=== PATIENT | female | born 1975 | race Caucasian/White ===

== ENCOUNTER 2022-04-24 03:33 | Emergency (ER) | payer BC, SELFPAY ==
[2022-04-24] VITALS (74 sets, daily range): BP systolic 106–149; BP diastolic 60–104; PULSE 63–94; RESP 11–35; TEMP 36.8; O2SAT 96–100
--- NOTE | 2022-04-24 03:48 | W.ED.GENAD ---
Discharge Plan Disposition Patient Disposition: HOME Condition: Improving Discharge Details Clinical Impression: Labile blood glucose, Hypoglycemia Primary Care Provider: Tammy,Local ED Provider: Angie Abdalla Home Meds and New Rx's Prescriptions: Continued Humalog U-100 Insulin 100 unit/mL Cartridge 1 sliding scale dose SUBCUT USEASDIRECTD Rx Instructions: dosed per correction on insulin pump clonazepam [Klonopin] 0.5 mg Tablet 0.5 mg PO TID bupropion HCl 450 mg Tablet Extended Release 24 Hr 450 mg PO DAILY Trintellix 20 mg Tablet 20 mg PO DAILY Discharge Instructions Instructions: Hypoglycemia in a Person with Diabetes (ED), What to Do if Your Blood Sugar is Low (ED) Additional Instructions: Your blood sugar is now within a more acceptable range. The remainder of your lab work is reassuring and shows no evidence of acute concerning or significant findings. Continue to hold on using your insulin pump at this time. Check your sugars regularly. Use your subcutaneous insulin as needed and directed. Call your primary care doctor tomorrow to schedule a follow-up appointment for reevaluation within the next week. Return immediately to the emergency department if you develop any worsening or new concerning symptoms. Discharge Data Discharge Date/Time-TO BE ENTERED AT DEPARTURE: 04/24/22 12:43 Discharge Physician: Angie Abdalla Medical Decision Making <Wilber Mock MD - Last Filed: 04/24/22 08:35> 46-year-old female history of diabetes presents with hyperglycemia, felt nauseous blood sugar at home was as low as the 20s, administered snack and glucagon x2, improved to the 160s per EMS, symptoms returned in route on arrival blood sugar as low as 79. No chest pain shortness of breath no active vomiting. Is visiting from [place]. Asked patient to disconnect her pump. Recent pump location change. Consider pump malfunction versus systemic illness versus kidney dysfunction altering insulin metabolism. Patient Dors she takes no other form of insulin. Currently alert and oriented hemodynamically stable. Bolusing half amp of D50, patient placed on D5 NS drip, will obtain basic labs close reassessment will have patient p.o. and attempt to transition off of dextrose infusion. Disposition pending labs and reassessment. 04: 46 mental status improving, symptoms improving. Still with poor appetite. Will attempt p.o. challenge and transition off of D5 NS. Per collateral information from and patient, patient was not drinking enough fluid yesterday had a couple coffee in the morning and 1 glass of wine in the evening. Consider component of dehydration. Patient and family have access to her Lantus and Humalog for syringes if discharged home will be instructed to use the subcutaneous route without the pump to avoid any possible technological malfunction that could have happened with the pump 8: 34 given repeat dips in her glucose to as low as the 70s patient was given half amp of D50 and was on D5 NS as well as taking p.o., blood sugar teena to over 300, D5 NS was discontinued, patient continues to feel fatigued no nausea or vomiting. Hemodynamically stable. Given subcutaneous insulin; will continue with LR hydration, will order flu RSV COVID close reassessment <Angie Abdalla, - Last Filed: 04/24/22 16:51> 04/24/22 Dr. Mock 46-year-old female history of diabetes presents with hyperglycemia, felt nauseous blood sugar at home was as low as the 20s, administered snack and glucagon x2, improved to the 160s per EMS, symptoms returned in route on arrival blood sugar as low as 79. No chest pain shortness of breath no active vomiting. Is visiting from [place]. Asked patient to disconnect her pump. Recent pump location change. Consider pump malfunction versus systemic illness versus kidney dysfunction altering insulin metabolism. Patient endorsed she takes no other form of insulin. Currently alert and oriented hemodynamically stable. Bolusing half amp of D50, patient placed on D5 NS drip, will obtain basic labs close reassessment will have patient p.o. and attempt to transition off of dextrose infusion. Disposition pending labs and reassessment. 04: 46 mental status improving, symptoms improving. Still with poor appetite. Will attempt p.o. challenge and transition off of D5 NS. Per collateral information from and patient, patient was not drinking enough fluid yesterday had a couple coffee in the morning and 1 glass of wine in the evening. Consider component of dehydration. Patient and family have access to her Lantus and Humalog for syringes if discharged home will be instructed to use the subcutaneous route without the pump to avoid any possible technological malfunction that could have happened with the pump 8: 34 given repeat dips in her glucose to as low as the 70s patient was given half amp of D50 and was on D5 NS as well as taking p.o., blood sugar teena to over 300, D5 NS was discontinued, patient continues to feel fatigued no nausea or vomiting. Hemodynamically stable. Given subcutaneous insulin; will continue with LR hydration, will order flu RSV COVID close reassessment 04/24/22 Dr. Abdalla 0800 --please see Dr. Mock's note for initial presentation, exam and plan. Case endorsed to follow-up on repeat blood sugar after additional IV hydration. 1000 --blood sugar downtrending now 242. Patient feels better. EKG obtained due to report of syncope and within normal limits. Fluvid negative. Patient feels comfortable going home. Advised to follow up with the primary care doctor for re-evaluation. Usual and customary return precautions given prior to discharge. Medical Records Medical records reviewed: Yes I reviewed the patient's medical records. Lab Data Lab results reviewed: Yes I reviewed the patient's lab results. Labs: 04/24/22 04:05 Urine - Reflex from Ua Urine Culture - Pending Laboratory Tests Range/Units 04/24/22 04/24/22 04/24/22 03:55 03:55 03:55 WBC (4.4-10.8) 10^3/uL 12.97 H RBC (3.93-5.22) 10^6/uL 4.25 Hgb (11.2-15.7) g/dL 13.6 Hct (36.0-46.0) % 39.1 MCV (80-95) fL 92 MCH (27.0-33.0) pg 32.0 MCHC (32.0-36.0) % 34.8 RDW (11.7-14.6) % 12.2 Plt Count (130-400) 10^3/uL 218 MPV (8.0-11.0) fL 11.5 H Immature Gran % 0.5 Neutrophils % 77.7 Lymphocytes % 11.2 Monocytes % 8.3 Eosinophils % 1.6 Basophils % 0.7 Nucleated RBC % (0.0-0.3) % 0.0 Absolute Neutrophils (1.2-6.7) 10^3/uL 10.08 H Absolute Lymphocytes (1.2-3.4) 10^3/uL 1.45 Absolute Monocytes (0.1-0.8) 10^3/uL 1.08 H Absolute Eosinophils (0.0-0.7) 10^3/uL 0.21 Absolute Basophils (0.0-0.2) 10^3/uL 0.09 VBG pH (7.31-7.41) 7.38 VBG pCO2 (41-51) mmHg 50 VBG pO2 mmHg 39 VBG HCO3 (23-28) mmol/L 30 H VBG Total CO2 (24-29) mmol/L 27 VBG O2 Saturation % 74 VBG Base Excess (-2-3) mmol/L 4 H Sodium (136-145) mmol/L 140 Potassium (3.5-5.1) mmol/L 3.9 Chloride (98-107) mmol/L 103 Carbon Dioxide (21.0-32.0) mmol/L 30.3 Anion Gap (3-11) mmol/L 6.7 BUN (7-18) mg/dL 23 H Creatinine (0.55-1.02) mg/dL 1.0 Estimated GFR/1.73 m2 (mL/min/1.73m2) >= 60.00 Glucose (74-106) mg/dL 71 L Calcium (8.5-10.1) mg/dL 8.2 L Total Bilirubin (0.2-1.0) mg/dL 0.5 AST (15-37) U/L 21 ALT (14-59) U/L 27 Alkaline Phosphatase (46-116) U/L 68 Troponin I (<or=60) ng/L Total Protein (6.4-8.2) g/dL 6.6 Albumin (3.4-5.0) g/dL 3.8 TSH (0.36-3.74) uIU/mL 4.87 H Free T4 (0.76-1.46) ng/dL 0.78 Urine Color (Yellow) Urine Clarity (Clear) Urine pH (5-8) Ur Specific [place] (1.005-1.025) Urine Protein (Negative) mg/dL Urine Ketones (Negative) mg/dL Urine Blood (Negative) Urine Nitrite (Negative) Urine Bilirubin (Negative) Urine Urobilinogen (Up TO 0.2) EU/dL Ur Leukocyte Esterase (Negative) Urine RBC (0-2) HPF Urine WBC (0-5) HPF Ur Epithelial Cells (Negative) HPF Urine Crystals (Negative) HPF Urine Bacteria (Negative) HPF Urine Casts (Negative) LPF Urine Mucus (Negative) Ur Culture Indicated? Urine Glucose (Negative) mg/dL COVID-19 Source SARS-CoV-2 (PCR) (Negative) Influenza Type A (PCR) (Negative) Influenza Type B (PCR) (Negative) RSV (PCR) (Negative) Range/Units 04/24/22 04/24/22 04/24/22 03:55 04:05 08:37 WBC (4.4-10.8) 10^3/uL RBC (3.93-5.22) 10^6/uL Hgb (11.2-15.7) g/dL Hct (36.0-46.0) % MCV (80-95) fL MCH (27.0-33.0) pg MCHC (32.0-36.0) % RDW (11.7-14.6) % Plt Count (130-400) 10^3/uL MPV (8.0-11.0) fL Immature Gran % Neutrophils % Lymphocytes % Monocytes % Eosinophils % Basophils % Nucleated RBC % (0.0-0.3) % Absolute Neutrophils (1.2-6.7) 10^3/uL Absolute Lymphocytes (1.2-3.4) 10^3/uL Absolute Monocytes (0.1-0.8) 10^3/uL Absolute Eosinophils (0.0-0.7) 10^3/uL Absolute Basophils (0.0-0.2) 10^3/uL VBG pH (7.31-7.41) VBG pCO2 (41-51) mmHg VBG pO2 mmHg VBG HCO3 (23-28) mmol/L VBG Total CO2 (24-29) mmol/L VBG O2 Saturation % VBG Base Excess (-2-3) mmol/L Sodium (136-145) mmol/L Potassium (3.5-5.1) mmol/L Chloride (98-107) mmol/L Carbon Dioxide (21.0-32.0) mmol/L Anion Gap (3-11) mmol/L BUN (7-18) mg/dL Creatinine (0.55-1.02) mg/dL Estimated GFR/1.73 m2 (mL/min/1.73m2) Glucose (74-106) mg/dL Calcium (8.5-10.1) mg/dL Total Bilirubin (0.2-1.0) mg/dL AST (15-37) U/L ALT (14-59) U/L Alkaline Phosphatase (46-116) U/L Troponin I (<or=60) ng/L < 50 Total Protein (6.4-8.2) g/dL Albumin (3.4-5.0) g/dL TSH (0.36-3.74) uIU/mL Free T4 (0.76-1.46) ng/dL Urine Color (Yellow) Yellow Urine Clarity (Clear) Cloudy Urine pH (5-8) 8.0 Ur Specific [place] (1.005-1.025) 1.020 Urine Protein (Negative) mg/dL Negative Urine Ketones (Negative) mg/dL Negative Urine Blood (Negative) Negative Urine Nitrite (Negative) Negative Urine Bilirubin (Negative) Negative Urine Urobilinogen (Up TO 0.2) EU/dL 0.2 Ur Leukocyte Esterase (Negative) Trace H Urine RBC (0-2) HPF 0-2 Urine WBC (0-5) HPF 3-5 Ur Epithelial Cells (Negative) HPF Few Urine Crystals (Negative) HPF Moderate Amorphous Urine Bacteria (Negative) HPF Few Urine Casts (Negative) LPF Negative Urine Mucus (Negative) Negative Ur Culture Indicated? Yes Urine Glucose (Negative) mg/dL 100 COVID-19 Source Nasopharynx SARS-CoV-2 (PCR) (Negative) Negative Influenza Type A (PCR) (Negative) Negative Influenza Type B (PCR) (Negative) Negative RSV (PCR) (Negative) Negative ECG Data Attestation: I personally reviewed and interpreted this ECG (s) as follows: Interpretation: Rate of 67, sinus, normal axis, no STEMI HPI <Wilber Mock MD - Last Filed: 04/24/22 08:35> General Date/Time Provider Initiated Documentation: 04/24/22 03:43. HPI Narrative: 46-year-old female history of type 1 diabetes, currently using a Humalog insulin pump, has been on some follow-up appointments the late s, recently moved to the location of her pump , visiting from [place], was up late this evening with not sleeping, felt lightheaded nauseous blood sugars as low as the 20s, snack at home and 2 administrations of glucagon improved blood sugar to the 160s however symptoms returned in route with EMS including nausea. Repeat blood sugar in the 70s. Related Data Home Medications Medication Instructions Recorded Confirmed bupropion HCl 450 mg 24 hr tablet, 450 mg PO DAILY 04/24/22 04/24/22 extended release clonazepam 0.5 mg tablet (Klonopin) 0.5 mg PO TID 04/24/22 04/24/22 insulin lispro 100 unit/mL 1 sliding scale dose subcut 04/24/22 04/24/22 subcutaneous cartridge (Humalog USEASDIRECTD U-100 Insulin) vortioxetine 20 mg tablet 20 mg PO DAILY 04/24/22 04/24/22 (Trintellix) Allergies Allergy/AdvReac Type Severity Reaction Status Date / Time No Known Allergies Allergy Unverified 04/24/22 03:44 General Stated Complaint: Diabetes DONAL: 2 Review of Systems <Wilber Mock MD - Last Filed: 04/24/22 08:35> Narrative: Review of Systems Constitutional: negative Eyes: negative ENT: negative Cardiovascular: negative Respiratory: negative Gastrointestinal: Nausea : negative Musculoskeletal: negative Skin: negative Neurologic: negative Psych: negative PFSH <Wilber Mock MD - Last Filed: 04/24/22 08:35> All Active Problems (Updated 04/24/22 @ 10:27 by Angie Abdalla DO) Labile blood glucose (Acute) Hypoglycemia (Acute) Medical History (Updated 04/24/22 @ 10:27 by Angie Abdalla DO) Diabetes Social History Smoking/Tobacco Use Status: Never Smoking risk assessment performed?: Yes Alcohol Intake: current Alcohol Intake frequency: a few times a month Drug use: Never Substance use type: does not use Do you feel safe at home: Yes Do you feel safe in your relationship?: Yes Exam <Wilber Mock MD - Last Filed: 04/24/22 08:35> Narrative Exam Narrative: Physical Examination General: alert, awake, cooperative, appears uncomfortable HEENT: normocephalic, atraumatic; PERRL, EOM intact, conjunctiva normal; no nasal discharge; moist mucous membranes, oral and pharyngeal mucosa normal, tolerating secretions Neck: supple, trachea midline; full ROM Chest: normal to inspection Respiratory: normal respiratory effort, speaking in full sentences, clear to auscultation, no wheezing, rales or rhonchi Cardiac: regular rate, regular rhythm, S1S2 intact, no murmurs rubs or gallops GI: abdomen soft, non-tender, non-distended; no palpable mass or hepatosplenomegaly Skin: no lesions, rashes or trauma appreciated Neuro: AAOx3, normal speech, moving all extremities Psych: Appropriate mood and affect Course <Wilber Mock MD - Last Filed: 04/24/22 08:35> Vital Signs Vital signs: Vital Signs Temperature 36.8 C 04/24/22 03:38 Pulse 73 04/24/22 03:38 Respiratory Rate 18 04/24/22 03:38 Blood Pressure 149/104 H 04/24/22 03:38 Pulse Oximetry 100 04/24/22 03:38 Temperature 36.8 C 04/24/22 03:38 Temperature Source Skin 04/24/22 03:38 Pulse 73 04/24/22 03:38 Respiratory Rate 18 04/24/22 03:38 Blood Pressure 149/104 H 04/24/22 03:38 Pulse Oximetry 100 04/24/22 03:38 Pain Level 6 04/24/22 03:38 Sign Out <Wilber Mock MD - Last Filed: 04/24/22 08:35> Sign Out Data: Sign Out Comment: pending repeat fingerstick and eval after insulin and LR; likely pump malfunction related hypoglycemia Last updated by Wilber Mock MD at 04/24/22 08:14
[2022-04-24] MEDS: Dextrose 50%-Water 25 GM/50 ML SYR (03:50)
[2022-04-24] MEDS: DEXTROSE 5%-0.9% SALINE 1,000 ML 100 ML IV (03:55)
[2022-04-24 04:02] LABS: BE (Venous) 4 mmol/L (-2-3); HCO3 (Venous) 30 mmol/L (23-28); O2 Sat (Venous) 74 %; TCO2 (Venous) 27 mmol/L (24-29); pCO2 (Venous) 50 mmHg (41-51); pH (Venous) 7.38 (7.31-7.41); pO2 (Venous) 39 mmHg
[2022-04-24 04:03] LABS: Abs Immature Grans 0.06 10^3/uL (0.0-0.06); Absolute Basophil Count 0.09 10^3/uL (0.0-0.2); Absolute Eosinophil Count 0.21 10^3/uL (0.0-0.7); Absolute Lymphocyte Count 1.45 10^3/uL (1.2-3.4); Absolute Monocyte Count 1.08 10^3/uL (0.1-0.8); Absolute Neutrophil Count 10.08 10^3/uL (1.2-6.7); Basophils % 0.7; Eosinophils % 1.6; HCT 39.1 % (36.0-46.0); HGB 13.6 g/dL (11.2-15.7); Immature Grans % 0.5; Lymphocytes % 11.2; MCHC 34.8 % (32.0-36.0); MCV 92 fL (80-95); MPV 11.5 fL (8.0-11.0); Monocytes % 8.3; Neutrophils % 77.7; Platelet Count 218 10^3/uL (130-400); RBC 4.25 10^6/uL (3.93-5.22); RDW 12.2 % (11.7-14.6); RDW-SD 40.9 fL; WBC 12.97 10^3/uL (4.4-10.8)
[2022-04-24 04:12] LABS: Bilirubin Negative (Negative); Blood Negative (Negative); Clarity Cloudy (Clear); Glucose 100 mg/dL (Negative); Ketones Negative (Negative); Leukocyte Esterase Trace (Negative); Nitrite Negative (Negative); Urobilinogen 0.2 EU/dL (Up TO 0.2)
[2022-04-24 04:29] LABS: Bacteria Few HPF (Negative); Crystals Moderate Amorphous HPF (Negative); Epithelial Cells Few HPF (Negative); RBC 0-2 HPF (0-2)
[2022-04-24 04:30] LABS: C & S Indicated? Yes; Casts Negative LPF (Negative); Mucus Negative (Negative)
[2022-04-24 04:30] LABS: ALT 27 U/L (14-59); AST 21 U/L (15-37); Albumin 3.8 g/dL (3.4-5.0); Alkaline Phosphatase 68 U/L (46-116); Anion Gap 6.7 mmol/L (3-11); BUN 23 mg/dL (7-18); Bilirubin, Total 0.5 mg/dL (0.2-1.0); CO2 30.3 mmol/L (21.0-32.0); Calcium 8.2 mg/dL (8.5-10.1); Chloride 103 mmol/L (98-107); Glucose 71 mg/dL (74-106); Potassium 3.9 mmol/L (3.5-5.1); Sodium 140 mmol/L (136-145); TSH (W/Ref FT4) 4.87 uIU/mL (0.36-3.74); Total Protein 6.6 g/dL (6.4-8.2)
[2022-04-24 04:32] LABS: Troponin I < 50 ng/L (<or=60)
[2022-04-24 04:48] LABS: FREE T4 0.78 ng/dL (0.76-1.46)
[2022-04-24] MEDS: Lactated Ringers 1,000 ML 1000 ML IV ×2 (07:40→08:50)
[2022-04-24] MEDS: Insulin Aspart 100 UNITS/ML UNIT 8 UNITS SC (07:54)
[2022-04-24 09:24] LABS: COVID-19 PCR Negative (Negative); Influenza A PCR Negative (Negative); Influenza B PCR Negative (Negative); RSV PCR Negative (Negative)
[2022-04-24 09:27] LABS: Source Nasopharynx
--- NOTE | 2022-04-24 09:45 | RT.EKG_ITS ---
APPROVED REPORT Exam: Resting ECG Reason for Exam: syncope Patient Location: E HR:67 bpm ECG Measurements Heart Rate 67 AXIS IA 185 P 12 QRSd 87 QRS 49 QT 405 T 58 QTc 428 Conclusion Sinus rhythm...normal P axis, V-rate 60- 99 Low voltage, extremity leads...all extremity leads <0.5mV. Sinus. Normal axis. No STEMI. I have reviewed and interpreted ECG and agree with software generated interpretation.
== END 2022-04-24 12:43 | disposition home or self-care (01) ==
PROVIDERS: Emergency Medicine; Emergency Provider Physician Assistant
DX: E10.649 Type 1 diabetes mellitus with hypoglycemia without coma (principal); Z20.822 Contact with and (suspected) exposure to COVID-19; Z79.4 Long term (current) use of insulin
CPT/HCPCS: 36415; 80053; 81025; 82805; 87077; 87637; 93005; 96365; 96366; 96372; 96375; 99284; 81003; 81015; 84439; 84443; 84484; 85025; 87086; 87186; 93010; 99285; J1815; J7042